=== PATIENT | female | born 1945 | race Caucasian/White ===

== ENCOUNTER → 2016-09-04 | Outpatient (CLI) | payer OTHER ==
[~2016-09-04] VITALS: Ht 162.6 cm; Wt 89.4 kg
[~2016-09-04] MED LIST: ALDACTONE25 MG PO; AMLODIPINE BESY10 MG PO; CALCIUM 600 +1 EAC1 PO; CARISOPRODOL 3350 MG PO; CRESTOR PO; FISH OIL 1,001000 M2 PO; FISH OIL PO; FUROSEMIDE 40 M40 MG PO; HYDROCODONE-AP1 EAC6 PO; IBUPROFEN 600600 M1 PO; LEVOXYL125 MCG PO; LOPRESSOR50 PO; MOBIC15 MG PO; PLAVIX 75 MG TA75 M1 PO; POTASSIUM CHLOR8 ME2 PO; TRAMADOL 50 MG50 MG PO; VITAMIN E400 UNIT PO
[2016-09-04 10:16] VITALS: BP 122/72
== END ==
LOC: PAIN 06:47
DX: M47.817 Spondylosis without myelopathy or radiculopathy, lumbosacral region (principal); M48.06 Spinal stenosis, lumbar region; Z88.0 Allergy status to penicillin; Z88.8 Allergy status to other drugs, medicaments and biological substances; Z79.899 Other long term (current) drug therapy; Z98.890 Other specified postprocedural states

== ENCOUNTER → 2016-09-18 | Outpatient (CLI) | payer OTHER ==
[~2016-09-18] VITALS: Ht 162.6 cm; Wt 90.2 kg
--- NOTE | ~2016-09-18 | HPC ---
[facility] [place] [address] PAIN MANAGEMENT CONSULTATION Name: VANESSA WOLF Room #: REG ANABEL Infante#: [id number] Admission: 09/18/16 Attend Phys: Christopher Soares DO Discharge: Date of : 46 Report #: [id number] THIS REPORT FOR: //name// CC: Wolfgang Soares DATE OF SERVICE: 09/18/2016 The patient is a very pleasant 71-year-old female. She was prior seen in the pain clinic on 09/04/2016. We diagnosed the patient with symptomatic lumbar radiculopathy secondary to spinal stenosis. She was on Plavix. We had her hold that for injection today. She has pain in L5-S1 pattern. She notes pain continues to be problematic, she rates her pain 4 on VAS, but it does interfere with function. ASSESSMENT: Symptomatic lumbar radiculopathy secondary to spinal stenosis and the patient has been off Plavix for 7 days. PROCEDURE: Lumbar epidural injection under fluoroscopy. PROCEDURE NOTE: After both written and informed consent to include risk of spinal cord damage, increased pain, weakness and dural puncture, the patient was taken to the fluoroscopy suite, placed in the prone position. After sterile prep and drape, a skin wheal with lidocaine was raised. A 22-gauge epidural Tuohy needle was inserted in the midline at L5-S1 with good loss to resistance. Negative aspiration for cerebrospinal fluid or blood was noted. Then 1 mL of Omnipaque under biplanar fluoroscopy showed good spread within the epidural space. This was followed with 80 mg of triamcinolone plus 1 mL of 1.5% preservative-free Xylocaine, 0.5 mL Xylocaine was then injected to flush the needle; it was removed. The patient was monitored for an appropriate period of time and discharged in good and stable condition. The patient was told to resume Plavix tomorrow. Follow up in 3 weeks for reevaluation. By: [id number] Christopher Soares DO /trisha
[2016-09-18 10:32] VITALS: BP 126/76
== END | disposition home or self-care (01) ==
LOC: PAIN 07:43
DX: M54.16 Radiculopathy, lumbar region (principal); M48.06 Spinal stenosis, lumbar region

== ENCOUNTER → 2016-10-16 | Outpatient (CLI) | payer OTHER ==
[~2016-10-16] VITALS: Ht 162.6 cm; Wt 87.5 kg
[~2016-10-16] MED LIST changes: +KEFLEX500 MG PO
--- NOTE | ~2016-10-16 | HPC ---
[facility] [place] [address] PAIN MANAGEMENT CONSULTATION Name: VANESSA WOLF Room #: REG MARIANNEAbbe Infante#: [id number] Admission: 10/16/16 Attend Phys: Christopher Soares DO Discharge: Date of : 46 Report #: [id number] THIS REPORT FOR: //name// CC: Wolfgang Soares The patient is a 71-year-old female typically treated for lumbar radiculopathy secondary to spinal stenosis. She has done well with occasional epidural injections, had near 100% relief with an injection in 2014. She was seen 09/18/2016, given epidural injection 7 days off Plavix. Returns to pain clinic today noting that that injection afforded good incremental relief, some 60% relief, which is ongoing though she still has some pain left low back radiating into the augustin. She has been off of Plavix for 7 days. Notes some paresthesia down the leg. Pain is exacerbated with sitting too long or bending. PHYSICAL EXAMINATION: GENERAL: Otherwise unchanged, 71-year-old female, BMI is 33.1 kilograms per meter squared. VITAL SIGNS: Stable. EXTREMITIES: Rises from chair using armrest, modestly antalgic gait, slight decreased left plantar flexion strength with a straight leg raise on that side. ASSESSMENT: Symptomatic lumbar radiculopathy secondary to spinal stenosis with incremental improvement following 1 epidural injection. RECOMMENDATIONS: 1. Repeat epidural injection under fluoroscopy today at L5-S1. 2. Resume Plavix at night. 3. Follow up in 3 weeks for reevaluation. Cancel if doing well. PROCEDURE NOTE: Lumbar epidural injection under fluoroscopy. PROCEDURE NOTE: After both written and informed consent to include risk of spinal cord damage, increased pain, weakness and dural puncture, the patient was taken to the fluoroscopy suite, placed in the prone position. After sterile prep and drape, a skin wheal with lidocaine was raised. A 22-gauge epidural Tuohy needle was inserted in the midline at L5-S1 with good loss to resistance. Negative aspiration for cerebrospinal fluid or blood was noted. Then 1 mL of Omnipaque under biplanar fluoroscopy showed good spread within the epidural space. This was followed with 80 mg of triamcinolone plus 1 mL of 1.5% preservative-free Xylocaine, 0.5 mL Xylocaine was then injected to flush the needle; it was removed. The patient was monitored for an appropriate period of time and discharged in good and stable condition. <ELECTRONICALLY SIGNED> By: Christopher Soares DO 10/17/16 1225 [id number] 13 Christopher Soares DO /nt
[2016-10-16 10:06] VITALS: BP 119/68
== END | disposition home or self-care (01) ==
LOC: PAIN 06:56
DX: M48.06 Spinal stenosis, lumbar region (principal); M54.16 Radiculopathy, lumbar region; Z88.0 Allergy status to penicillin; Z88.8 Allergy status to other drugs, medicaments and biological substances; Z79.899 Other long term (current) drug therapy; Z98.890 Other specified postprocedural states

== ENCOUNTER → 2017-09-23 | Outpatient (CLI) | payer OTHER ==
[~2017-09-23] VITALS: Ht 162.6 cm; Wt 82.4 kg
[~2017-09-23] MED LIST changes: +ASPIR 8181 MG PO; +FLONASE 0.05%50 MCG NASAL; -LEVOXYL125 MCG PO; +LEVOXYL150 MCG PO; +PROBIOTIC1 EAC1 PO; +ZESTRIL10 MG PO
--- NOTE | ~2017-09-23 | HPC ---
[facility] [address] [place] [address] PAIN MANAGEMENT CONSULTATION Name: VANESSA WOLF Room #: REG ANABEL Char.#: [id number] Admission: 09/23/17 Attend Phys: Alphonso Soares DO Discharge: Date of : 46 Report #: [id number] THIS REPORT FOR: //name// CC: Wolfgang Soares DATE OF SERVICE: 09/23/2017 CHIEF COMPLAINT: Low back pain, left lower extremity pain with paresthesias. HISTORY OF PRESENT ILLNESS: As you know, the patient is a pleasant 72-year-old female who has returned today in followup visit with recurrent low back pain, left lower extremity pain with paresthesias. The patient is placing pain score at 6/10. She denies new injury or new trauma that may have led to symptom recurrence. She indicates pain is chronic in nature, had a flareup about 2 weeks ago. No events that have led to this. She states the pain is sharp, exacerbated with standing for any length of time, bending for any length of time, improves with sitting and lying down. She returns today in followup visit requesting epidural injection under fluoroscopic guidance. ALLERGIES: PENICILLIN, STATINS, MEPERIDINE. CURRENT MEDICATIONS: Lactobacillus, fluticasone, aspirin, lisinopril, docusate sodium, calcium carbonate, levothyroxine, metoprolol. SOCIAL HISTORY: The patient denies tobacco, alcohol, IV or illicit drug use. She is retired. She is accompanied by her present in room today. IMAGING: No new imaging available. PQRS: The patient has osteoarthritis of the low back, bilateral hips and mildly in the bilateral knees. Denies any rheumatoid arthritis. Pain intensity is 6/10. She is not a fall risk, has not had a fall in the last 3 months. She is not on blood thinner. She is not treated for hypertension. She is not on chronic opioids. PAIN ASSESSMENT: Functional assessment tool indicates 20/70 mild to moderate interference. PHYSICAL EXAMINATION: VITAL SIGNS: Blood pressure 165/89, pulse is 56, respiratory rate 16, unlabored. The patient is 100% on room air. Height 5 feet 4 inches tall, weight 181.6 pounds, BMI calculated at 31.2. GENERAL: Well-developed, well-nourished, well-hydrated 72-year-old female appearing her stated age. Placing current pain score at 6/10. [place] [address] PAIN MANAGEMENT CONSULTATION Name: VANESSA WOLF Room #: REG CLAbbe PardoIsa#: [id number] Admission: 09/23/17 Attend Phys: Alphonso Soares DO Discharge: Date of : 46 Report #: [id number] HEENT: Normocephalic, atraumatic. Pupils equal, round, reactive to light. EXTREMITIES: Show no clubbing, no cyanosis, no edema. MUSCULOSKELETAL: Seated straight leg raising negative. Supine straight leg raising positive on the left. Frank test negative. Modified Gaenslen's positive for axial low back pain. Gait mildly antalgic favoring left lower extremity over right. ASSESSMENT: 1. Lumbar radiculopathy. 2. Displacement of lumbar intervertebral disk with radiculopathy. 3. Lumbosacral spondylosis with radiculopathy. 4. Lumbar degeneration. 5. Intractable pain. PLAN: 1. The patient has returned today in followup visit to undergo next in the series of epidural injections. As you are aware, the patient receives excellent benefit with epidural injections. In fact, most recent injection provided 90% improvement in overall pain lasting for nearly 10 months. She returns requesting an epidural injection under fluoroscopic guidance. The patient was advised risks and benefits of the procedure. These risks include, but are not necessarily limited to bleeding, bruising, infection, worsening pain, no relief of pain, also risk of temporary or permanent muscle weakness, temporary or permanent nerve damage, possible paralysis and . The patient states understood and wished to proceed. 2. No medication changes made at today's visit. The patient to continue current medical therapy as previously prescribed. 3. We will see the patient back in followup visit on an as needed basis for next in the series of epidural injections. PROCEDURE NOTE PROCEDURE: L5-S1 left paramedian epidural steroid injection under fluoroscopic guidance. DESCRIPTION OF PROCEDURE: After obtaining written consent, the patient was taken back to fluoroscopy suite, placed in prone position with pillow under abdomen to decrease lumbar lordosis. Skin overlying lumbosacral area then prepped and draped in aseptic fashion. L5-S1 vertebral interspace identified by AP fluoroscopy. Skin and subcutaneous tissue overlying target site of injection was anesthetized with 3 mL of 1% lidocaine. A 20-gauge 3-1/2 inch Tuohy needle advanced under fluoroscopic guidance towards the epidural space using left paramedian approach. Epidural space identified using loss of resistance to air technique. After negative aspiration for heme or cerebrospinal fluid, 1 mL of Omnipaque was injected. Lumbar epidurogram [address] [address] PAIN MANAGEMENT CONSULTATION Name: VANESSA WOLF Room #: REG ANABEL Infante#: [id number] Admission: 09/23/17 Attend Phys: Alphonso Soares DO Discharge: Date of : 46 Report #: [id number] confirmed using both AP and lateral fluoroscopy. After negative aspiration for heme or cerebrospinal fluid, 5 mL of a solution containing 2 mL 40 mg per mL, 80 mg total triamcinolone, 3 mL lidocaine 1% injected slowly. Needle retracted longterm, flushed with 1 mL of 1% lidocaine and removed. Sterile bandage placed over injection site. No new motor deficits present in lower extremity following procedure. The patient tolerated procedure well, carefully escorted to recovery room in stable condition. No apparent complication. After meeting discharge criteria, the patient discharged home. <ELECTRONICALLY SIGNED> By: Alphonso Soares DO 09/25/17 0815 [id number] Alphonso Soares DO /nt
[2017-09-23 09:43] VITALS: BP 165/89
== END | disposition home or self-care (01) ==
LOC: PAIN 06:21
DX: M51.16 Intervertebral disc disorders with radiculopathy, lumbar region (principal); M47.27 Other spondylosis with radiculopathy, lumbosacral region; M16.0 Bilateral primary osteoarthritis of hip; M17.0 Bilateral primary osteoarthritis of knee; Z88.0 Allergy status to penicillin; Z79.899 Other long term (current) drug therapy; Z79.82 Long term (current) use of aspirin

== ENCOUNTER → 2018-02-02 | Outpatient (CLI) | payer OTHER ==
[~2018-02-02] VITALS: Ht 162.6 cm; Wt 85.6 kg
[~2018-02-02] MED LIST changes: +LISINOPRIL20 MG PO
--- NOTE | ~2018-02-02 | HPC ---
[facility] [address] [place] [address] PAIN MANAGEMENT CONSULTATION Name: VANESSA WOLF Room #: REG [facility] M..#: [id number] Admission: 02/02/18 Attend Phys: Alphonso Soares DO Discharge: Date of : 46 Report #: [id number] THIS REPORT FOR: //name// CC: Wolfgang Soares DATE OF SERVICE: 02/02/2018 CHIEF COMPLAINT: Low back pain, left lower extremity pain and paresthesias. HISTORY OF PRESENT ILLNESS: As you know, the patient is a pleasant 72-year-old female who returns today in followup visit requesting to undergo next in the series of epidural injections. As you are aware, the patient has received benefit with previous epidural injections, most recent provided improvement of about 60% initially, but has faded down to 25% improvement overall. She is now placing pain score at 10/10. She states that her pain has made it to where she has sustained a fall in the last 3 months due to ongoing exacerbations of symptoms. She returns today to discuss the possibility of undergoing next in the series of epidural injections or further evaluation to determine if surgical options might be necessary. Although than a single fall in the last 3 months, she has no change in medical history. ALLERGIES: PENICILLIN, STATINS AND MEPERIDINE. CURRENT MEDICATIONS: Lactobacillus, fluticasone, aspirin, lisinopril, docusate sodium, calcium carbonate, levothyroxine, metoprolol. SOCIAL HISTORY: The patient denies tobacco, alcohol, IV or illicit drug use. She is retired, retired years ago. She is accompanied by her who is present in room today. IMAGING: No new imaging available. PQRS: The patient has known osteoarthritic changes in the low back, bilateral hips, mildly in the bilateral knees. She denies rheumatoid arthritis diagnosis. She is placing pain intensity at 10/10. She is a fall risk. She has had a fall in the last 3 months. She is not on blood thinner. She is not treated for hypertension. She has not been on long-term opioids. She is placing her pain impact tool at 60/70, near complete interference of daily activities secondary to pain. PHYSICAL EXAMINATION: VITAL SIGNS: Blood pressure 146/81, pulse 60, respiratory rate 16 and unlabored. The patient is 97% on room air. Height 5 feet 4 inches tall, weight 188.8 pounds, BMI calculated 32.4. [facility] [address] [place] [address] PAIN MANAGEMENT CONSULTATION Name: VANESSA WOLF Room #: REG CLI [facility]#: [id number] Admission: 02/02/18 Attend Phys: Alphonso Soares DO Discharge: Date of : 46 Report #: [id number] GENERAL: Well-developed, well-nourished, well-hydrated exogenously obese 72-year-old female appearing stated age. She is placing pain today, 10/10. HEENT: Normocephalic, atraumatic. Pupils equal, round, reactive to light. EXTREMITIES: Show no clubbing, no cyanosis, no edema. MUSCULOSKELETAL: Lower extremity strength is symmetrical, but deconditioning bilaterally is noted. Seated straight leg raising negative. Supine straight leg raising positive on the left. Frank's test negative. Modified Gaenslen's positive for axial low back pain. Gait mildly antalgic. ASSESSMENT: 1. Symptomatic lumbar radiculopathy. 2. Displacement of lumbar intervertebral disk with radiculopathy. 3. Lumbosacral spondylosis with radiculopathy. 4. Lumbar degeneration. 5. Chronic intractable pain. PLAN: 1. The patient returns today in followup visit having noted 50-60% improvement in overall pain initially with the previous epidural injection, but unfortunately, her symptoms returned quite quickly, now only offering about 25% improvement. She has returned requesting to undergo next in the series of epidural injections. I have discussed with the patient today, would be more than willing to provide this epidural injection with the understanding that if she does not note good and prolonged benefit with this epidural injection, we would recommend that she undergo further evaluation with a new MRI as her most recent imaging is from 02/22/2014. The fact that the epidural injections are beginning to lose efficacy, it is concerning for changes in the lumbar spine and may need to be addressed with more aggressive treatment options such as surgical. The patient is understanding and is agreeable with the plan. 2. The patient was advised risks and benefits of a lumbar epidural injection. These risks include but are not necessarily limited to bleeding, bruising, infection, worsening pain, no relief of pain, also risk of temporary or permanent muscle weakness, temporary or permanent nerve damage, possible paralysis and . The patient states she understood and wished to proceed. 3. No medication changes made at today's visit. The patient will continue current medical therapy as previously prescribed. 4. We will see the patient back in followup visit on an as needed basis for the next in the series of lumbar epidural injections, assuming good efficacy. Otherwise, we will see her back to discuss MRI imaging of the lumbar spine for further evaluation. PROCEDURE NOTE DESCRIPTION OF PROCEDURE: L5-S1 left paramedian epidural steroid injection under fluoroscopic guidance. [address] [address] PAIN MANAGEMENT CONSULTATION Name: [facility]ANSESA WOLF [facility] [id number] Admission: 02/02/18 Attend Phys: Alphonso Soares DO Discharge: Date of : 46 Report #: [id number] After obtaining written consent, the patient was taken back to fluoroscopy suite, placed in prone position with pillow under abdomen to decrease lumbar lordosis. Skin overlying the lumbosacral area then prepped and draped in aseptic fashion. The L5-S1 vertebral interspace identified by AP fluoroscopy. Skin and subcutaneous tissue overlying target site of injection was anesthetized with 3 mL of 1% lidocaine. A 20-gauge 3-1/2 inch Tuohy needle advanced under fluoroscopic guidance towards the epidural space using left paramedian approach. Epidural space identified using loss of resistance to air technique. After negative aspiration for heme or cerebrospinal fluid, 1 mL of Isovue injected. A lumbar epidurogram was confirmed using both AP and lateral fluoroscopy. After negative aspiration for heme or cerebrospinal fluid, 5 mL of a solution containing 2 mL 40 mg per mL, 80 mg total triamcinolone, 3 mL lidocaine 1% injected slowly. Needle retracted senior living, flushed with 1 mL of 1% lidocaine, then removed. Sterile bandage placed over injection site. No new motor deficits present in the lower extremity following procedure. The patient tolerated the procedure well, carefully escorted to recovery room in stable condition. No apparent complications. After meeting discharge criteria, the patient discharged home. By: [id number] Alphonso Soares DO /trisha
[2018-02-02 09:33] VITALS: BP 146/81
== END | disposition home or self-care (01) ==
LOC: PAIN 08:59
DX: M51.16 Intervertebral disc disorders with radiculopathy, lumbar region (principal); M47.27 Other spondylosis with radiculopathy, lumbosacral region; G89.29 Other chronic pain; M19.90 Unspecified osteoarthritis, unspecified site; Z88.0 Allergy status to penicillin; Z88.8 Allergy status to other drugs, medicaments and biological substances; Z79.899 Other long term (current) drug therapy; Z79.82 Long term (current) use of aspirin